=== PATIENT | female | born 1965 | race Caucasian/White ===

== ENCOUNTER 2023-04-15 09:59 | Outpatient (RCR) | payer SELFPAY ==
--- NOTE | 2023-04-15 10:59 | HP.PTEVAL_ITS ---
Patient's Visit Information ARIE NAIR is a 57 year old F referred to Physical Therapy by ARMANDO PULIDO with a diagnosis of laminectomy of L5/S1. DOS: 02/20/23. Date of Evaluation: 04/15/23 Physical Therapist: Carter Hartman DPT - Visit Plan Frequency: 1x/Week Duration: 6 Weeks Plan: Start with HS stretching, neutral spine DLS exercises. Progress as tolerated. Pt. to be seen weekly with progression of HEP as we progress. - Subjective Pt. is here today for her initial evaluation with diagnosis of spinal stenosis with neurogenic claudication, radiculopathy, laminectomy of L5/S1. DOS: 02/20/23. Pt. does have some tingling in her R LE down to her toes. this is better than it was, but is still present. No LE weakness noted. Pt. is hopeful to get back to all of her household work and working as a network cable installer. 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 Pt. is currently working on progressive walking program, but reports having some back fatigue with medium distances. Overall she is doing well, but would like to work on increasing her strength. No changes in B/B, no saddle region pain. - Pain Lumbar spine Pain Intensity (Out of 10): 4 Pain Intensity Range: 6 - Objective POSTURE: Pt. has decent posture in stance. Slight increased lumbar lordosis in stance. PALPATION: pt. has mild tenderness along lumbar spine, but minimal. NEURO: normal sensation in BLEs. Pt. has normal DTR of BLEs. Pt. is able to rise on heels and toes without issues. ROM: LUMBAR SPINE: flexion nil loss, SB min loss R none L, rotation min/nil loss bilat, ext mod loss. Pt. has tightness in B HS, R worse than L. MMT: RLE: ankle 5-/5 throughout; knee: ext 5/5, flexion 5- /5; hip: flexion 4/5, abd 4/5, ext 4/5. LLE: ankle 5/5 throughout; knee: ext 5/5, flexion 5/5; hip: flexion 4/5, abd 4/5, ext 4/5. Core strength- poor. GAIT: Pt. has decreased B arm swing, decreased trunk rotation with gait. No weakness noted. Guarded posture with gait. - Balance/Special Test Scores Oswestry Low Back Score: 15 - Goals Goal 1:: LTG: Pt. to be I with HEP. Goal Time Frame: 4-6 Weeks Goal 2:: LTG: Pt. to complete all daily activities in home without limitations. Goal Time Frame: 4-6 Weeks Goal 3:: LTG: Pt. to get back to work driving without limitations from her lumbar spine. Goal Time Frame: 6-8 Weeks Goal 4:: LTG: Pt. to have increased BLE and core strength to 5/5 throughout. Goal Time Frame: 6-8 Weeks Goal 5:: LTG: Pt. to complete all walking progressions without reports of pain or weakness in lumbar spine. Goal Time Frame: 2-4 Weeks - Rehabilitation Potential Physical Therapy Diagnosis: Pt. has signs and symptoms consistent with diagnosis of spinal stenosis with neurogenic claudication, radiculopathy, laminectomy of L5/S1. DOS: 02/20/23. Pt. has subsequent hypomobility, weakness and difficulty with walking. She would benefit from PT to work on progressive strengthening and walking progression. Rehabilitation Potential: Excellent - Anticipated Interventions Patient/Client Instruction: Educate patient on: Condition, Plan of Care, Risk Factors, Benefits of Fitness Program For the Purpose of:: To facilitate caregiver knowledge, To improve self management, To prevent re-injury, To improve ability to perform tasks related to life management, To improve tolerance to ADL's Therapeutic Exercise to Include: Strength training, Power training, Endurance training, Postural training, Flexibilty training, Gait and locomotor training, Dynamic Lumbar Stabilization For the Purpose of:: To decrease pain, To increase ROM, To improve nutrient delivery to tissue, To increase oxygenation perfusion, To improve muscle performance and motor function, To decrease soft tissue restriction Thank you for the opportunity to evaluate your patient. For Medicare and Medicare HMO plans, please review the plan of care and approve it. It will need to be FAXED BACK to us at [phone] for Medicare purposes. For Medicare only, by signing this I certify the plan of care. Please let me know if there are questions or concerns regarding this plan of care. Physician Signature: Date:
== END 2023-04-15 19:00 | disposition home or self-care (01) ==
LOC: PT 09:59
PROVIDERS: PCP Nurse Practitioner Primary Care
DX: M43.16 Spondylolisthesis, lumbar region (principal); M48.062 Spinal stenosis, lumbar region with neurogenic claudication; M54.16 Radiculopathy, lumbar region; Z47.89 Encounter for other orthopedic aftercare
CPT/HCPCS: 97110; 97161

== ENCOUNTER 2023-07-24 12:00 | Outpatient (RCR) | payer BC, SELFPAY ==
--- NOTE | 2023-07-24 12:29 | HP.PTDCSUM ---
Discharge Summary D/C summary: It has been my pleasure to treat ARIE NAIR referred by JOYCE RENEE, with the diagnosis of LBP with R LE radiculopathy for a total of 6 visit(s). Discharge Date: Please see the following information for a summary of their discharge status. Subjective Subjective: I already have my surgery scheduled. Pain has remained the same with no change in LBP or R LE radiculopathy Pain LBP: Pain Intensity (Out of 10): 6 R LE: Pain Intensity (Out of 10): 6 Overall Improvement % Improvement: 0 Objective Objective/Function: There is no change in pain level at this time. There is no change in R LE radiculopathy at this time Pt is I with HEP, but is unable to perform the ex's secondary to pain Pt has made no improvements at this time Goals Goal 1:: Decrease LBP x 50% to aid with ambulation Goal Progress: Not Progressing Goal 2:: Decrease the frequency and intensity of R LE radiculopathy x 50% to aid with standing tolerance Goal Progress: Not Progressing Goal 3:: I with HEP Goal Progress: Goal Met Plan Plan: Discharge D/C Information d/c sentence: If there are questions or concerns regarding this patient's physical therapy, please feel free to call me at [phone]. Thank you for the referral of this patient. Sincerely, Blaine Givens, PT, ATC Balance/Gait/Functional tests Balance/Special Test Scores Oswestry Low Back Score: 11 Improvement % Improvement: 0
== END 2023-07-24 19:00 | disposition home or self-care (01) ==
LOC: PT 12:00
PROVIDERS: PCP Nurse Practitioner Primary Care
DX: M48.07 Spinal stenosis, lumbosacral region (principal); M43.16 Spondylolisthesis, lumbar region; M48.062 Spinal stenosis, lumbar region with neurogenic claudication
CPT/HCPCS: 97110; 97161; 97164

== ENCOUNTER 2024-01-13 09:30 | Outpatient (RCR) | payer BC, SELFPAY ==
--- NOTE | 2023-10-01 11:47 | HP.PTEVAL ---
Patient's Visit Information Visit Information Visit Information: ARIE NAIR is a 58 year old F referred to Physical Therapy by JOYCE RENEE with a diagnosis of L4-S1 ALIF/PSF ON 08/27/23 FOR L/S DEG SPONDYLOLISTHESIS W/RADIC. Date of Evaluation: 10/01/23 Physical Therapist: Yohana Schwartz, PT, Cert MDT Visit Plan Frequency: 2x /Week Duration: 4-6 Weeks Plan: *CHECK AUTH* Consider STM (By PT Only), Posture Correction/Strengthening, Instruction in Appropriate Body Mechanics and Activity Modifications. DLS with NEUTRAL SPINE ONLY (per physician order). CARMELINA LE ROM, Stretching and Strengthening as needed. HEP Instruction. 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 Disability: NO Present symptoms: INTERMITTENT CARMELINA LOW BACK PAIN R > LEFT. INTERMITTENT R THIGH AND LEG PAIN. CONSTANT R FOOT (ARCH) PAIN. INTERMITTENT R FOOT/TOE NUMBNESS. INTERMITTENT L GROIN, THIGH AND FOOT NUMBNESS. Pain Scale: WORST 5/10, LEAST 3/10 Currently: 5/10 Is it getting better, worse or staying the same: STAYING THE SAME NOW BUT OVER ALL SIGNIFICANTLY BETTER R LE SX'S SINCE SX. Commenced as a result of: NO APPARENT REASON Worse: BEING ON FEET TOO LONG, BEING ACTIVE, NOT TAKING IT EASY, Better: LYING FLAT ON BACK, WALKING Disturbed sleep: YES Previous history/Previous treatment: THIS IS PATIENTS 3RD BACK SURGERY. PREVIOUS SURGERIES INCLUDE L L4-5 AND L5-S1 LAMINOFORAMIONTOMY DECOMPRESSION BY DR. BESSIE DANG ON 10/18/21 AND L4-5 LAMINOFORAMINOTOMY DECOMPRESSION ON 02/20/23 COMPLICARTED BY PERSISTENT LUMBAR RADICULOPATHY/POST LAMINECTOMY SYNDROME. ALSO TRIED EDWIN'S, PNP INJECTIONS, MASSAGE, CHIROPRACTIC AND PHYSICAL THERAPY. Coughing/sneezing/straining: NEGATIVE Gait: INDEP WITHOUT AD. DENIES LIMPING. USING TREADMILL ABOUT 1/2 TO 3/4 MILE A DAY. PLUS WALKING AROUND HOUSE 5-10 MIN 3-4 TIMES A DAY. Bowel or Bladder Dysfunction: NO Accidents: NO Unexplained weight loss: NO Imagin09/23/23 LUMBAR X-RAY WITHOUT EVIDENCE OF HARDWARE FAILURE OR LOOSENING. INTERVAL YAZIDISM OF DISC AND FORAMINAL HEIGHT COMPARED TO PREOPERATIVE FILMS. PMH/Recent major surgery: HIGH CHOLESTEROL. PHYSICIAN RESTRICTIONS: OK TO START WEANING OUT OF BRACE THIS WEEK (5 WKS PO) LETTING PAIN BEING HER GUIDE. ALSO AT 5 WKS ALLOWED TO BEND, LIFT AND TWIST LETTING PAIN BE HER GUIDE. PATIENT REPORTS SHE CALLED BACK TO HER SURGEON AFTER HER 4 WK FOLLOW UP TO CLARIFY THIS. Objective Objective: Sitting/Standing Posture: FAIR. REDUCED LORDOSIS. Other Observations: INDEP GAIT INTO PT WITHOUT ANY AD'S OR LOB. DECREASED CADANCE AND GUARDED GAIT. WEARING BACK BRACE. SEE TUG TIME BELOW. Sensory deficit: CARMELINA LE LIGHT TOUCH SENSATION GROSSLY INTACT. ROM deficit: CARMELINA HIP FLEXOR, HIP ROTATOR AND HS TIGHTNESS Motor deficit: CARMELINA LE'S GROSSLY 5/5 WITH MMT'ING EXCEPT HIPS 4/5. Reflexes: 2/3 CARMELINA LE'S. Lumbar mvmt loss: NT Core strength: POOR Palpation: ANTERIOR AND POSTERIOR INCISIONS ALL LOOK GOOD WITHOUT ANY SIGNS OF INFECTION. PATIENT DENIES TENDERNESS WITH LUMBAR AND HIP PALPATION BUT THERE IS MILD INCREASED CARMELINA THORACIC AND LUMBAR PARASPINAL INCREASED M. TONE. TREATMENT: NEUROMUSCULAR REEDUCATION - RETRAINING OF MVMT AND POSTURE FOR SITTING, LYING AND STANDING ACTIVITIES. INSTRUCTED IN WALKING PROGRAM AND SAFE WEANING FROM BRACE. Balance/Special Test Scores Oswestry Low Back Score: 17 TUG Test Time Seconds: 16.73 30 Second Chair Rise Test Seconds: 4 Goals Goal 1:: DECREASE C/O LOW BACK AND LE SX'S BY 50% TO EASE ADL'S. Goal Time Frame: 4-6 Weeks Goal 2:: IMPROVE BACK OSWESTRY SCORE BY 5 POINTS TO AID IN RETURN TO PLOF Goal Time Frame: 4-6 Weeks Goal 3:: PATIENT WILL COMPLETE 8 STANDS IN 30 SECS TO DEMONSTRATE IMPROVED FUNCTIONAL STRENGTH Goal Time Frame: 4-6 Weeks Goal 4:: PATIENT WILL COMPLETE TUG IN < 10 SECS TO DEMONSTRATE IMPROVED GAIT STABILITY Goal Time Frame: 4-6 Weeks Goal 5:: PATIENT WILL BE INDEP WITH A HEP FOR CONTINUED IMPROVEMENT ONCE FORMAL PHYSICAL THERAPY CONCLUDES. Goal Time Frame: 4-6 Weeks Anticipated Interventions Patient/Client Instruction: Educate patient on: Condition, Plan of Care and Risk Factors For the Purpose of:: To improve self management Therapeutic Exercise to Include: Strength training, Body mechanics, Postural training, Flexibilty training, Neuromotor development and Dynamic Lumbar Stabilization For the Purpose of:: To decrease pain, To increase ROM, To improve muscle performance and motor function, To increase tolerance to activity/condition/position and To improve ability of physical actions for home/community/work/leisure Manual Therapy Techniques to Include: Soft tissue mobilization For the Purpose of:: To decrease pain and To improve nutrient delivery to tissue Thermo therapy (hot pack): Yes Ultrasound (thermal/non thermal): Yes For the Purpose of:: To decrease pain and To improve nutrient delivery to tissue Text: Thank you for the opportunity to evaluate your patient. For Medicare and Medicare HMO plans, please review the plan of care and approve it. It will need to be FAXED BACK to us at [phone] for Medicare purposes. For Medicare only, by signing this I certify the plan of care. Please let me know if there are questions or concerns regarding this plan of care. Physician Signature: Date:
--- NOTE | 2023-11-21 10:29 | HP.PTREVAL_ITS ---
Re-Evaluation Intro: JOYCE RENEE, It has been my pleasure to treat ARIE NAIR over the last 12 visits for L4- S1 ALIF/PSF ON 08/27/23 FOR L/S DEG SPONDYLOLISTHESIS W/RADIC. Please see the progress note below for an update on the physical therapy plan of care! Subjective Subjective: PATIENT REPORTS THERAPY HAS DEFINATELY HELPED. STATES SHE TOOK 2 25 MINUTE WALKS YESTERDAY WITH 15 MINUTES OF THEM BEING AT A BRISK PACE AND SHE IS HAPPY WITH THAT. STATES SHE WAS SORE AFTER LAST SESSION BUT FINE BY THE NEXT DAY. ALSO SORE AFTER DOING HER WALKS, ALL OF HER HOME EX'S AND HOUSEWORK BUT ABLE TO ALLEVIATE WITH ICE AND REST. STILL HAVING L THIGH AND R FOOT NUMBNESS AND TIGHTNESS BUT IMPROVED. SCHEDULED MASSAGE GOT CANCELLED DUE TO THERAPIST ILLNESS. Objective Objective/Function: PATIENT WAS SEEN TODAY FOR RE-ASSESSMENT OF PROGRESS TOWARD THE SET PT GOALS AND THE NEED FOR FURTHER PHYSICAL THERAPY VS READINESS FOR DISCHARGE. UPON EXAM TODAY: LUMBAR MVMT LOSS: FLEX - MIN TO MOD EXT - MOD R SG - MIN L SG - MOD PATIENT REPORTS CARMELINA BUTTOCK PAIN AT THE END OF THE AVAILABLE RANGE INTO FLEXION WITH TESTING BUT DENIES INCREASED PAIN WITH LUMBAR ROM TESTING ALL OTHER PLANES. INSTRUCTED PATIENT IN SUPINE SKTC AND LTR WITH GOOD TOLERANCE TODAY AND ADDED TO HEP TOLERATED. CARMELINA LE STRENGTH 5/5. SEE MUCH IMPROVED TUG TEST TIME AND STS TEST RESULTS BELOW. CORE STRENGTH - FAIR PATIENT IS INDEP WITH A HEP AND IS INDEP WITH A WALKING PROGRAM AND SELF PROGRESSION OF WALKING PROGRAM. Plan Plan Plan: PHYSICIAN RE-ASSESSMENT. HOLD CHART. Balance/Gait/Functional tests Balance/Special Test Scores Oswestry Low Back Score: 10 TUG Test Time Seconds: 8.55 Tug Test: <10 sec.=free mobile 30 Second Chair Rise Test Seconds: 9 Goals Goals Goal 1:: DECREASE C/O LOW BACK AND LE SX'S BY 50% TO EASE ADL'S. Goal Time Frame: 4-6 Weeks Goal Progress: Goal Met Goal 2:: IMPROVE BACK OSWESTRY SCORE BY 5 POINTS TO AID IN RETURN TO PLOF Goal Time Frame: 4-6 Weeks Goal Progress: Goal Met Goal 3:: PATIENT WILL COMPLETE 8 STANDS IN 30 SECS TO DEMONSTRATE IMPROVED FUNCTIONAL STRENGTH Goal Time Frame: 4-6 Weeks Goal Progress: Goal Met Goal 4:: PATIENT WILL COMPLETE TUG IN < 10 SECS TO DEMONSTRATE IMPROVED GAIT STABILITY Goal Time Frame: 4-6 Weeks Goal Progress: Goal Met Goal 5:: PATIENT WILL BE INDEP WITH A HEP FOR CONTINUED IMPROVEMENT ONCE FORMAL PHYSICAL THERAPY CONCLUDES. Goal Time Frame: 4-6 Weeks Goal Progress: Goal Met Anticipated Interventions Anticipated Interventions Patient/Client Instruction: Educate patient on: Condition, Plan of Care and Risk Factors For the Purpose of:: To improve self management Therapeutic Exercise to Include: Strength training, Body mechanics, Postural training, Flexibilty training, Neuromotor development and Dynamic Lumbar Stabilization For the Purpose of:: To decrease pain, To increase ROM, To improve muscle performance and motor function, To increase tolerance to activity/condition/position and To improve ability of physical actions for home/community/work/leisure Manual Therapy Techniques to Include: Soft tissue mobilization For the Purpose of:: To decrease pain and To improve nutrient delivery to tissue Thermo therapy (hot pack): Yes Ultrasound (thermal/non thermal): Yes For the Purpose of:: To decrease pain and To improve nutrient delivery to tissue Re-Evaluation Ending Re-evaluation ending: Please do not hesitate to contact me at [phone] by phone or if you have questions or concerns regarding this new plan of care! Sincerely, Yohana Schwartz, PT, Cert MDT
--- NOTE | 2023-12-12 11:05 | HP.PTREVAL ---
Re-Evaluation Intro: JOYCE RENEE, It has been my pleasure to treat ARIE NAIR over the last 13 visits for L4-S1 ALIF/PSF ON 08/27/23 FOR L/S DEG SPONDYLOLISTHESIS W/RADIC. Please see the progress note below for an update on the physical therapy plan of care! Subjective Subjective: PATIENT REPORTS SHE WAS GETTING BETTER UNTIL YESTERDAY IN TERMS OF HER ACTIVITY LEVEL. SHE STATES SHE FLEW HOME FROM [place] YESTERDAY AND HAD A REALLY HARD TIME WALKING IN THE [place]. THE PAIN STARTED BEFORE SHE EVEN GOT ON THE FLIGHT. PRIOR TO THAT FLARE UP YESTERDAY MORNING WAS UP TO DOING 3O MINUTE WALKS WHICH WAS AN IMPROVEMENT BECAUSE THAT INCLUDED 20 MINUTE BRISK WALK. STATES HER BACK FLARED UP FOR NO APPARENT REASON. SHE ALSO REPORTS WORSENING OF HER FOOT SYMPTOMS FOR THE LAST TWO WEEKS - TINGLING AND BURNING - THAT GETS WORSE WITH ACTIVITY AND BETTER WITH LYING FLAT. PATIENT REPORTS SHE WANTS TO RESUME THERAPY TO SEE IF SHE CAN GET BACK TO NORMAL ACTIVITY WITHOUT THIS PAIN. REPORTS PARTIAL COMPLIANCE WITH HEP BUT STATES SHE FORGOT SOME OF THE EX'S BUT HAS WRITTEN INSTRUCTIONS SHE CAN LOOK AT. Objective Objective/Function: THIS PATIENT PRESENTS TO PT WITH A NEW ORDER TO RESUME PT AND HAS FOLLOW UP SCHEDULED WITH HER SURGEON IN ONE YEAR. PATIENT WAS SEEN TODAY FOR RE-ASSESSMENT OF PROGRESS TOWARD THE SET PT GOALS AND THE NEED FOR FURTHER PHYSICAL THERAPY VS READINESS FOR DISCHARGE. OVER-ALL THERE ARE NO SIGNIFICANT CHANGES SIINCE LAST RE-CHECK AND PATIENT IS A GOOD CANDIDATE TO RESUME PT BASED ON PROGRESS MADE AND ROOM FOR FURTHER IMPROVEMENT. UPON EXAM TODAY: LUMBAR MVMT LOSS: FLEX - MIN EXT - MOD R SG - MOD L SG - MOD PATIENT REPORTS INCREASED PAIN IN HER TAILBONE AREA WITH LUMBAR ROM TESTING ALL PLANES AND CARMELINA CALF PAIN WITH LUMBAR FLEXION ROM TESTING BUT DOES NOT REMAIN WORSE A RESULT. CARMELINA LE STRENGTH 5/5. CORE STRENGTH - FAIR Plan Plan Plan: *CHECK AUTH AND RECORD IN CHART* NEUTRAL SPINE CORE STABILITY. BACK EDUCATION. POSTURE TRAINING. PROGRESS THER EX TOLERATED AND GEAR EX'S TOWARDS GYM OR HOME PER PATIENT PREFERENCE. Balance/Gait/Functional tests Balance/Special Test Scores Oswestry Low Back Score: 12 TUG Test Time Seconds: 8.82 Tug Test: <10 sec.=free mobile 30 Second Chair Rise Test Seconds: 8 Goals Goals Goal 1:: NEW GOAL: DECREASE C/O LOW BACK AND LE SX'S BY 65% TO EASE ADL'S. Goal Time Frame: 4-6 Weeks Goal Progress: Goal Met Goal 2:: NEW GOAL: IMPROVE BACK OSWESTRY SCORE BY 5 POINTS TO AID IN RETURN TO PLOF Goal Time Frame: 4-6 Weeks Goal Progress: Goal Met Goal 3:: PATIENT WILL COMPLETE 8 STANDS IN 30 SECS TO DEMONSTRATE IMPROVED FUNCTIONAL STRENGTH Goal Time Frame: 4-6 Weeks Goal Progress: Goal Met Goal 4:: PATIENT WILL COMPLETE TUG IN < 10 SECS TO DEMONSTRATE IMPROVED GAIT STABILITY Goal Time Frame: 4-6 Weeks Goal Progress: Goal Met Goal 5:: NEW GOAL: PATIENT WILL BE INDEP WITH A HEP AND/OR GYM EX PROGRAM FOR CONTINUED IMPROVEMENT ONCE FORMAL PHYSICAL THERAPY CONCLUDES. Goal Time Frame: 4-6 Weeks Goal Progress: Goal Met Goal 6:: NEW GOAL: PATIENT WILL HAVE GOOD CORE STRENGTH/STABILITY Goal Time Frame: 4-6 Weeks Anticipated Interventions Anticipated Interventions Patient/Client Instruction: Educate patient on: Condition, Plan of Care and Risk Factors For the Purpose of:: To improve self management Therapeutic Exercise to Include: Strength training, Body mechanics, Postural training, Flexibilty training, Neuromotor development and Dynamic Lumbar Stabilization For the Purpose of:: To decrease pain, To increase ROM, To improve muscle performance and motor function, To increase tolerance to activity/condition/position and To improve ability of physical actions for home/community/work/leisure Manual Therapy Techniques to Include: Soft tissue mobilization For the Purpose of:: To decrease pain and To improve nutrient delivery to tissue Thermo therapy (hot pack): Yes Ultrasound (thermal/non thermal): Yes For the Purpose of:: To decrease pain and To improve nutrient delivery to tissue Re-Evaluation Ending Re-evaluation ending: Please do not hesitate to contact me at [phone] by phone or if you have questions or concerns regarding this new plan of care! Sincerely, Yohana Schwartz, PT, Cert MDT
--- NOTE | 2024-01-15 13:37 | HP.PTDCSUM ---
Discharge Summary D/C summary: It has been my pleasure to treat ARIE NAIR referred by JOYCE RENEE, with the diagnosis of L4-S1 ALIF/PSF ON 08/27/23 FOR L/S DEG SPONDYLOLISTHESIS W/RADIC for a total of 16 visit(s). Discharge Date: 01/15/24 Please see the following information for a summary of their discharge status. Subjective Subjective: PATIENT STATES SHE FEELS SHE HAS BENEFITED VERY MUCH FROM PHYSICAL THERAPY AND FEELS SHE HAS LEARNED HOW TO CONTINUE TO WORK ON GETTING STRONGER. REPORTS ADDING STS EX WITHOUT INCREASED PAIN. PATIENT REPORTS HER R ARM IS STILL BOTHERING HER BUT ABLE TO DO HER ROWS AND PULLDOWNS WITH THE OTB WITHOUT ANY INCREASED PAIN. Pain LOW BACK: Pain Intensity (Out of 10): 2 R LE: Pain Intensity (Out of 10): 0 L LE: Pain Intensity (Out of 10): 1 Overall Improvement % Improvement: 60 Objective Objective/Function: PATIENT WAS SEEN TODAY FOR RE-ASSESSMENT OF PROGRESS TOWARD THE SET PT GOALS AND THE NEED FOR FURTHER PHYSICAL THERAPY VS READINESS FOR DISCHARGE. UPON EXAM TODAY: PATIENT IS INDEP WITH A HEP. WRITTEN HEP HAS BEEN PROVIDED AND BANDED LATERAL WALKS WITH OTB WERE ADDED TODAY WITH GOOD TOLERANCE. LUMBAR MVMT LOSS: FLEX - MIN EXT - MOD R SG - MOD L SG - MOD PATIENT DENIES INCREASED PAIN WITH LUMBAR ROM TESTING ALL PLANES TODAY. CARMELINA LE STRENGTH 5/5. CORE STRENGTH - GOOD. PATIENT HAS MADE GOOD PROGRESS WITH PT AND IS APPROPRIATE FOR DISCHARGE. SHE IS AGREEABLE. SHE WAS OBSERVED BENDING AND TWISTING IN THE TREATMENT ROOM AND NEEDED CUEING TO BRING IT TO HER AWARENESS AND RECOMMENDED USE OF BETTER BODY MECHANICS. 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 Goals Goal 1:: NEW GOAL: DECREASE C/O LOW BACK AND LE SX'S BY 65% TO EASE ADL'S. Goal Progress: Patient reports 60% Goal 2:: NEW GOAL: IMPROVE BACK OSWESTRY SCORE BY 5 POINTS TO AID IN RETURN TO PLOF Goal Progress: Goal Met Goal 3:: PATIENT WILL COMPLETE 8 STANDS IN 30 SECS TO DEMONSTRATE IMPROVED FUNCTIONAL STRENGTH Goal Progress: Goal Met Goal 4:: PATIENT WILL COMPLETE TUG IN < 10 SECS TO DEMONSTRATE IMPROVED GAIT STABILITY Goal Progress: Goal Met Goal 5:: NEW GOAL: PATIENT WILL BE INDEP WITH A HEP AND/OR GYM EX PROGRAM FOR CONTINUED IMPROVEMENT ONCE FORMAL PHYSICAL THERAPY CONCLUDES. Goal Progress: Goal Met Goal 6:: NEW GOAL: PATIENT WILL HAVE GOOD CORE STRENGTH/STABILITY Goal Progress: Goal Met Plan Plan: D/C TO INDEP EX. PATIENT AGREEABLE. D/C Information d/c sentence: If there are questions or concerns regarding this patient's physical therapy, please feel free to call me at [phone]. Thank you for the referral of this patient. Sincerely, Yohana Schwartz, PT, Cert MDT Balance/Gait/Functional tests Balance/Special Test Scores Oswestry Low Back Score: 9 TUG Test Time Seconds: 8.82 Tug Test: <10 sec.=free mobile 30 Second Chair Rise Test Seconds: 8 Improvement % Improvement: 60
== END 2024-01-13 19:00 | disposition home or self-care (01) ==
LOC: PT 09:30
PROVIDERS: PCP Nurse Practitioner Primary Care
DX: M48.062 Spinal stenosis, lumbar region with neurogenic claudication (principal); M43.16 Spondylolisthesis, lumbar region; Z47.89 Encounter for other orthopedic aftercare
CPT/HCPCS: 97110; 97112; 97162; 97164; 97530

== ENCOUNTER 2024-03-02 13:00 | Outpatient (RCR) | payer BC, SELFPAY ==
--- NOTE | 2024-02-10 08:58 | HP.PTEVAL ---
Patient's Visit Information Visit Information Visit Information: ARIE NAIR is a 58 year old F referred to Physical Therapy by JONES NAGEL with a diagnosis of Right Elbow. Date of Evaluation: 02/09/24 Physical Therapist: Nemo Franco DPT Visit Plan Frequency: 1x/Week Duration: 6 Weeks Plan: Lateral Epicondylitis- Manual, dry needling, US- decrease inflammation then progress to strength/stabilization Subjective Subjective: Patient reports that she saw the spine doctor due to elbow pain- he did an MRI saw a bone spur on the anterior C4-C5 and then sent her to see the elbow specialist. The elbow specialist did a cortisone injection and put you in a brace on the right side. She has had soreness in the elbow for 6 weeks after clippers. It has not cleared up at all. The more she uses it the more it aggravates it. The pain is located on the outside of the elbow. She has weakness in the whole right arm- it radiates into the neck as well. She has a lot of popping and clicking in the neck area. She has had x-rays on the elbow that showed calcium deposits. She does not feel the elbow its any better. Right hand dominate. The pain is the whole arm at this point. She describes the pain as dull and achy. Worst: Worst: 8/10 Agg: using it- like when she is more active- weighted objects. Eases: rest- sitting. Best: 2/10. No N/T in the fingers. She has had some increase in BARAJAS but none this week. No blurred vision or dizziness. Sleep: she is wearing a wrist splint at night. Occasionally- she gets numbness if she sleeps on her side. The numbness is more in the top of the arm when she has it and if she moves off her side it goes away. She has a lot of deterioration in her spine. She had a spinal fusion in August- she is still healing from that. She had carpal tunnel surgery 30 years ago bilateral PMHx: none Meds: hormone replacement, hydrochlorothiazide. Objective Objective: Posture: forward head, rounded shoulders- pt can correct with verbal cues but is unable to maintain Palpation: tender along common extensor tendon and down into the forearm ROM: Cervical: WFL in all planes but reports tightness, Shoulder: WFL but reports tightness at end range flexion and abduction, Elbow: WFL no pain, Wrist: WNL discomfort end range flexion and extn Strength: Scap: fair, Shoulder: 4+/5 throughout no pain, Elbow: 4/5 no pain, Wrist: 4/5 discomfort, Electrolysis Needle Operator: 50 bilateral Sensation: WNL to gross touch throughout upper extremity Special Test: Arm straight out: stretching wrist each direction: stretching but no pains Nothing throughout evaluation increased s/s Special Tests R Elbow Valgus Stress Test - MCL Instability: Negative R Elbow Varus Stress Stest - MCL Instability: Negative Balance/Special Test Scores Quick DASH Score: 50.0000 Goals Goal 1:: Patient will report participation in home exercise program activities a minimum of 5 days per week, as adjunct to skilled physical therapy intervention in preparation for independent home management upon discharge. Goal Time Frame: 4-6 Weeks Goal 2:: Patient will report no pain in her elbow for 1 week with ADL's. Goal Time Frame: 4-6 Weeks Rehabilitation Potential Physical Therapy Diagnosis: Patient presents with decreased strength/stabilization, clutch mechanic and muscular endurance leading to increased pain with ADL's. Rehabilitation Potential: Good Anticipated Interventions Patient/Client Instruction: Educate patient on: Benefits of Fitness Program For the Purpose of:: To improve ability to perform ADL's Therapeutic Exercise to Include: Strength training, Endurance training, Balance training, Coordination, Agility training, Body mechanics, Postural training, Flexibilty training, Gait and locomotor training, Neuromotor development, Passive ROM, Active ROM, Dynamic Lumbar Stabilization and Scapular Strength/Stabilization For the Purpose of:: To improve ability to perform ADL's Manual Therapy Techniques to Include: Functional dry needling and Soft tissue mobilization For the Purpose of:: To improve nutrient delivery to tissue TENS: Yes Cryotherapy (ice pack, ice massage): Yes Thermo therapy (hot pack): Yes Ultrasound (thermal/non thermal): Yes Text: Thank you for the opportunity to evaluate your patient. For Medicare and Medicare HMO plans, please review the plan of care and approve it. It will need to be FAXED BACK to us at [phone] for Medicare purposes. For Medicare only, by signing this I certify the plan of care. Please let me know if there are questions or concerns regarding this plan of care. Physician Signature: Date:
--- NOTE | 2024-04-06 11:27 | HP.PT.NRP ---
Patient Information Patient Information: ARIE NAIR was seen in my office for initial evaluation on 02/09/24. The following Plan of Care was established for this patient: POC Established Initial Frequency: 1x/Week Initial Duration: 6 Weeks Anticipated Interventions Patient/Client Instruction: Educate patient on: Benefits of Fitness Program For the Purpose of:: To improve ability to perform ADL's Therapeutic Exercise to Include: Strength training, Endurance training, Balance training, Coordination, Agility training, Body mechanics, Postural training, Flexibilty training, Gait and locomotor training, Neuromotor development, Passive ROM, Active ROM, Dynamic Lumbar Stabilization and Scapular Strength/Stabilization For the Purpose of:: To improve ability to perform ADL's Manual Therapy Techniques to Include: Functional dry needling and Soft tissue mobilization For the Purpose of:: To improve nutrient delivery to tissue TENS: Yes Cryotherapy (ice pack, ice massage): Yes Thermo therapy (hot pack): Yes Ultrasound (thermal/non thermal): Yes Last Seen Last Seen: This patient was last seen in our office . Pertinent comments regarding their Physical therapy will appear below: Patient to follow up with MD and appropriate to be d/c at this time At this point I will be discontinuing this patient from physical therapy. I would be happy to see this patient again in the future if found appropriate by the physician. Thank you! Nemo Franco, DPT Balance/Gait/Functional tests Balance/Special Test Scores Quick DASH Score: 50.0000
== END 2024-03-02 19:00 | disposition home or self-care (01) ==
LOC: PT 13:00
PROVIDERS: PCP Nurse Practitioner Primary Care
DX: M50.30 Other cervical disc degeneration, unspecified cervical region (principal); M47.892 Other spondylosis, cervical region
CPT/HCPCS: 97110; 97140; 97162

== ENCOUNTER 2024-05-18 15:00 | Outpatient (RCR) | payer BC, SELFPAY ==
--- NOTE | 2024-04-19 12:59 | HP.PTEVAL_ITS ---
Patient's Visit Information Visit Information Visit Information: ARIE NAIR is a 58 year old F referred to Physical Therapy by JONES TURNER with a diagnosis of 04/01/24 Right elbow common extensor tendon repair. Date of Evaluation: 04/19/24 Physical Therapist: Nemo Franco DPT Visit Plan Frequency: 2x /Week Duration: 6 Weeks Plan: 04/01/[address] Turner for right elbow common extensor tendon Repair- FOLLOW PROTOCOL Phase I: Week 2-6: Brace: at all times when not performing ex- ROM: PROM progress to AAROM as pt tolerates- Ex: scap strength (prox/postural focused) NO elbow or wrist resistance exercises- Modalities : per therapist, heat (before) ice (after) Phase II: Week 6-8: Brace: d/c at week 6 ROM: progress to full AROM Ex: graining machine operator strength, subax isometric wrist extn, Mod: per therapist, US, gentle massage along and against fiber orientation Phase III: Week 8-12: ROM: elbow ROM as tolerated, Ex: cont with phase II, add active wrist flexion/extn with progressive resistance, MOd: same as phase II Phase IV: Week 12-16: ROM: elbow ROM as tolerated, Ex: advanced strength, sports specific, return to full activities as tolerated, Mod as needed, consider return to sport including contact at 4 months if approved. HEP Given IE: postural correction, PROM elbow flexion/extn and gravity elim wrist flexion/extension- all educated to be GENTLE Subjective Subjective: Patient reports 04/01/[address] Turner for right elbow common extensor tendon Repair- she has been in the splint for 2 weeks that came off on Friday and she is now in a soft splint. She is not allowed to pickling operator more than a cup of coffee and wear the splint at all times. She reports that she is feeling better. The pain is located in the elbow- no pain that radiates. Worst: 10 Agg: moving it around Eases: moving it around. Best: 11/26. She reports always having a dull achy. She reports no sharp shooting pains. No numbness and tingling. Right hand dominate. Sleep: does wake her up if she is on her left side- but its not terrible- normally a back and right side sleeper. She does feel that its better than it was prior to surgery. The MRI showed that it was 75% torn. Goals: gardening and getting back to all off her normal function. Work: self employed taxi drivers. Still recovering from a fusion back surgery in August. PMHx/Meds: see list in chart. Objective Objective: Posture: forward head, rounded shoulders- increased guarding of the right UE- does have brace on right wrist Palpation: tender along extensor tendon at the elbow ROM: Cervical: WFL, Shoulder: WNL, Elbow: 0-145 with mild discomfort end range, Wrist: elbow bent: flexion: 35 degrees, extn: 60 degrees, rad dev: 15 degrees, ulnar dev: 50 degrees elbow extn: flexion 45 degrees extn: 50 degrees all with slight discomfort no pain Strength: not tested at elbow or wrist. Scap: fair Shoulder: 4/5 throughout Balance/Special Test Scores Quick DASH Score: 36.3625 Goals Goal 1:: Patient will be I with HEP and progression Goal Time Frame: 4-6 Weeks Goal 2:: Patient will maintain proper posture t/o tx session to demo increased scap s/s Goal Time Frame: 4-6 Weeks Goal 3:: Patient will demo full AROM of the right UE as allowed per protocol Goal Time Frame: 8-12 Weeks Goal 4:: Patient will demo equal graining machine operator strength as allowed by protocol Goal Time Frame: 8-12 Weeks Goal 5:: Patient will report 80% improvement Goal Time Frame: 8-12 Weeks Rehabilitation Potential Physical Therapy Diagnosis: Patient presents s/p right elbow surgery- she has decreased ROM, UE and scap s/s, muscular endurance leading to poor posture and decreased participation in ADL's. Anticipated Interventions Patient/Client Instruction: Educate patient on: Benefits of Fitness Program Therapeutic Exercise to Include: Strength training, Endurance training, Agility training, Body mechanics, Postural training, Neuromotor development, Passive ROM, Active ROM and Scapular Strength/Stabilization For the Purpose of:: To improve muscle performance and motor function Cryotherapy (ice pack, ice massage): Yes Thermo therapy (hot pack): Yes Ultrasound (thermal/non thermal): Yes Text: Thank you for the opportunity to evaluate your patient. For Medicare and Medicare HMO plans, please review the plan of care and approve it. It will need to be FAXED BACK to us at [phone] for Medicare purposes. For Medicare only, by signing this I certify the plan of care. Please let me know if there are questions or concerns regarding this plan of care. Physician Signature: Date:
--- NOTE | 2024-06-08 08:40 | HP.PT.NRP ---
Patient Information Patient Information: ARIE NAIR was seen in my office for initial evaluation on 04/19/24. The following Plan of Care was established for this patient: POC Established Initial Frequency: 2x /Week Initial Duration: 6 Weeks Anticipated Interventions Patient/Client Instruction: Educate patient on: Benefits of Fitness Program Therapeutic Exercise to Include: Strength training, Endurance training, Agility training, Body mechanics, Postural training, Neuromotor development, Passive ROM, Active ROM and Scapular Strength/Stabilization For the Purpose of:: To improve muscle performance and motor function Cryotherapy (ice pack, ice massage): Yes Thermo therapy (hot pack): Yes Ultrasound (thermal/non thermal): Yes Last Seen Last Seen: This patient was last seen in our office . Pertinent comments regarding their Physical therapy will appear below: Patient reports that she is doing great and just has mild soreness- she does not feel that she needs PT at this time and feels appropriate for d/c. At this point I will be discontinuing this patient from physical therapy. I would be happy to see this patient again in the future if found appropriate by the physician. Thank you! Nemo Franco, RODGERT Balance/Gait/Functional tests Balance/Special Test Scores Quick DASH Score: 22.7274
== END 2024-05-18 19:00 | disposition home or self-care (01) ==
LOC: PT 15:00
PROVIDERS: PCP Nurse Practitioner Primary Care
DX: M66.221 Spontaneous rupture of extensor tendons, right upper arm (principal)
CPT/HCPCS: 97110; 97140; 97162; 97530

== ENCOUNTER 2024-10-08 13:30 | Outpatient (RCR) | payer BC, SELFPAY ==
--- NOTE | 2024-09-15 13:22 | HP.PTEVAL_ITS ---
Patient's Visit Information Visit Information Visit Information: ARIE NAIR is a 59 year old F referred to Physical Therapy by JOYCE RENEE with a diagnosis of CERVICAL SPONDYLOSIS AND DDD. Date of Evaluation: 09/15/24 Physical Therapist: Yohana Schwartz PT, Cert MDT Visit Plan Frequency: 2x /Week Duration: 4-6 Weeks Plan: POSTURE CORRECTION/STRETCHING AND STRENGTHENING. NECK ROM AND STRETCHING. CARMELINA SHOULDER STRETCHING AND STRENGTHENING. HEP INSTRUCTION. 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 A LSO OWNS PROPERTY, DOES CLEANING AND RAISES AND SELLS PUPPIEES. WORKING TOTAL ABOUT 30 TO 35 HRS A WEEK PER PATIENT REPORT. Disability: NO Present symptoms: PATIENT C/O L SHLD NUMBNESS DOWN ARM INTO THUMB AND INDEX FINGER. BOTH HANDS ARE STIFF AND SORE IN THE MORNINGS. EXTREME TIGHTNESS IN THE SHLD AREAS BOTH SIDES. ACHINESS BOTH ARMS AND SHOULDERS. HEADACHES. NECK PAIN, POPPING AND CRACKING. FEELINGS OF CHOKING. NO HEADACHE TODAY. Present since: 6-8 YEARS AGO Pain Scale: Worst - 8/10 Least - 4/10 Currently: 6/10 Commenced as a result of: A LOT OF DRIVING. Worse: DRIVING, LIFTING, GARDENING, TURNING HEAD, MORNINGS Better: ICING, HEATING, MASSAGE, RESTING LYING FLAT ON BACK, DOES CHIROPRACTIC BUT CAN'T TELL THAT IT HELPS. ADVIL. ALEVE ARTHRITIS. Disturbed sleep: YES Previous history/Previous treatment: NO NECK SURGERY. NO NECK INJECTIONS. PATIENT REPORTS SHE HAS SEEN A NECK SURGEON ABOUT 3 TIMES AND NECK SURGERY HAS BEEN RECOMMENDED. PHYSICAL THERPAY WAS ORDERED IN THE spring BUT SHE WAS UNABLE TO DO IT BECAUSE SHE HAD A TEAR IN THE RIGHT ELBOW AND SHE HAD TO HAVE SURGERY AND THERAPY FOR THAT FIRST. SHE STATES SHE HAS TO DO THERAPY FIRST FOR HER NECK OR INSURANCE WON'T APPROVE SURGERY FOR HER NECK. SHE REPORTS SHE HAS HAD A LOT OF CHIROPRACTIC ON HER NECK INCLUDING TRACTION WITHOUT BENEFIT AND THE TRACTION ACTUALLY MAKES HER ARM SX'S WORSE FOR AT LEAST A DAY. Dizziness: NOT CURRENTLY BUT DID ABOUT 2 MONTHS AGO ESPECIALLY AFTER WALKING. Tinnitus: NO Nausea: NO Shortness of Breath: NO Difficulty Swollowing: occasionally Gait: INDEP. STATES SHE IS WALKING OK AND NOT USING ANY AD'S. STATES SHE DOES HAVE SOMETHING GOING ON WITH HER FOOT. THEY DID A STEROID INJECTION WHICH SHE REPORTS DECREASED THE PAIN AND SHE STATES SHE HAS FOLLOW UP TOMORROW. Accidents: SMALL WHIPLASH 1989' Unexplained weight loss: NO Imaging: MRI NECK JANUARY 2024 - SHOWING OSTEOPHYTE THAT CAN BE TAKEN OFF WITH SURGERY PER PATIENT REPORT. PMH/Recent major surgery: PATIENT DENIES ANY NEW MEDICAL CONDITIONS. 2 LUMBAR LAMINECTOMIES AND ONE BACK FUSION SINCE 2020 WITH LAST SURGERY BEING AUG 27 2023. R ELBOW SX APR 01 2024. Objective Objective: Sitting Posture/Standing Posture: FORWARD HEAD AND ROUNDED SHOULDERS. NO TORTICOLLIS. Active Correction of posture: WORSE. INCREAESES C/O NECK, UPPER BACK AND B SHLD PAIN. Other Observations: INDEP GAIT AND TRANSFERS WITHOUT AD. Sensory deficit: CARMELINA UE LIGHT TOUCH SENSATION GROSSLY INTACT AND SYMMETRICAL ROM deficit: CARMELINA SHLD END-RANGE TIGHTNESS AND PAIN ALL PLANES. POSTURAL TIGHTNESS AND PAIN. Motor deficit: CARMELINA UE'S GROSSLY 5/5 WITH MMT'ING. R HAND DOMINANT WITH A R AUTOMATION MANAGER STRENGTH OF 35 LBS, L 34 LBS. Cervical Mvmt Loss: Flex: MIN - INCREASES NECK - NW Pro: NIL - INCREASES SHLD'S - NW Ext: MOD - INCREASES NECK - NW Ret: BLAKE - INCREASES NECK AND UPPER BACK - NW RSB: MOD - P R SHLD BLADE PAIN - NW LSB: MOD - INCREASES L NECK PAIN - NW R Rot: MIN - INCREASES R NECK - NW L Rot: MIN - INCREASES R NECK - NW Postural strength: FAIR Palpation: INCREASED MUSCLE TONE AND TIGHTNESS OF CARMELINA UPPER AND MIDDLE TRAP REGIONS. OTHER: PATIENT REQUESTING NOT TO HAVE TRACTION DUE TO INCREASED UE SX'S WHEN DONE AT CHIROPACTORS MULTIPLE TIMES. Balance/Special Test Scores Oswestry Neck Score: 16 Goals Goal 1:: DECREASE C/O HEAD,NECK AND CARMELINA UE SX'S BY AT LEAST 25% TO EASE ADL'S. Goal Time Frame: 4-6 Weeks Goal 2:: INCREASE PAINFREE NECK ROM BY AT LEAST 25% TO EASE ADL'S. Goal Time Frame: 4-6 Weeks Goal 3:: PATIENT WILL SCORE AT LEAST 5 POINTS BETTER ON THE NECK OSWESTRY QUESTIONNAIRE Goal Time Frame: 4-6 Weeks Goal 4:: INDEP HEP Goal Time Frame: 4-6 Weeks Rehabilitation Potential Physical Therapy Diagnosis: NECK, CARMELINA SHLD AND POSTURAL STIFFNESS AND WEAKNESS. Rehabilitation Potential: Fair Anticipated Interventions Patient/Client Instruction: Educate patient on: Condition, Plan of Care and Risk Factors For the Purpose of:: To improve self management Therapeutic Exercise to Include: Strength training, Body mechanics, Postural training, Flexibilty training, Neuromotor development and Scapular Strength/Stabilization For the Purpose of:: To decrease pain, To improve muscle performance and motor function, To increase tolerance to activity/condition/position, To improve ability of physical actions for home/community/work/leisure, To decrease soft tissue restriction, To increase flexibility/ROM and To improve self management Text: Thank you for the opportunity to evaluate your patient. For Medicare and Medicare HMO plans, please review the plan of care and approve it. It will need to be FAXED BACK to us at [phone] for Medicare purposes. For Medicare only, by signing this I certify the plan of care. Please let me know if there are questions or concerns regarding this plan of care. Physician Signature: Date:
--- NOTE | 2024-10-08 14:06 | HP.PTDCSUM_ITS ---
Discharge Summary D/C summary: It has been my pleasure to treat AIRE NAIR referred by JOYCE RENEE, with the diagnosis of CERVICAL SPONDYLOSIS AND DDD for a total of 6 visit(s). Discharge Date: 10/08/24 Please see the following information for a summary of their discharge status. Subjective Subjective: PATIENT REPORTS SOMETIMES THE STRETCHES FEEL GOOD BUT IT JUST DOESN'T LAST. HEAT AND ICE ARE THE MAIN HELPFUL THINGS AT THIS POINT PER PATIENT REPORT. SHE REPORTS IT DEPENDS ON HER ACTIVITY LEVEL HOW MUCH PAIN SHE HAS AND ON THE TIME OF DAY. SHE REPORTS LESS PAIN IN THE MORNING AND MORE PAIN THE DAY PROGRESSES. Pain neck: Pain Intensity (Out of 10): 5 Overall Improvement % Improvement: 0 Objective Objective/Function: PATIENT WAS SEEN TODAY FOR RE-ASSESSMENT OF PROGRESS TOWARD THE SET PT GOALS AND THE NEED FOR FURTHER PHYSICAL THERAPY VS READINESS FOR DISCHARGE. UPON EXAM TODAY THERE ARE NO SIGNIFICANT CHANGES OVER-ALL COMPARED TO INITIAL EVALUATION. SHE IS NO WORSE AND SOMETIMES REPORTS TEMPORARY PAIN- RELIEF WITH THE EX'S BUT HER ROM AND STRENGTH IS NOT IMPROVING. Goals Goal 1:: DECREASE C/O HEAD,NECK AND CARMELINA UE SX'S BY AT LEAST 25% TO EASE ADL'S. Goal Progress: Not Met Goal 2:: INCREASE PAINFREE NECK ROM BY AT LEAST 25% TO EASE ADL'S. Goal Progress: Not Met Goal 3:: PATIENT WILL SCORE AT LEAST 5 POINTS BETTER ON THE NECK OSWESTRY QUESTIONNAIRE Goal Progress: Not Met Goal 4:: INDEP HEP Goal Progress: Goal Met Plan Plan: D/C DUE TO LACK OF IMPROVEMENT. PATIENT AGREEABLE. D/C Information d/c sentence: If there are questions or concerns regarding this patient's physical therapy, please feel free to call me at [phone]. Thank you for the referral of this patient. Sincerely, Yohana Schwartz, PT, Cert MDT Balance/Gait/Functional tests Balance/Special Test Scores Oswestry Neck Score: 14 Improvement % Improvement: 0
== END 2024-10-08 14:56 | disposition home or self-care (01) ==
LOC: PT 13:30
PROVIDERS: PCP Nurse Practitioner Primary Care
DX: M50.30 Other cervical disc degeneration, unspecified cervical region (principal); M47.892 Other spondylosis, cervical region
CPT/HCPCS: 97110; 97162; 97530

== ENCOUNTER 2025-02-03 09:00 | Outpatient (RCR) | payer BC, SELFPAY ==
--- NOTE | 2024-12-24 08:27 | HP.PTEVAL_ITS ---
Patient's Visit Information Visit Information Visit Information: ARIE NAIR is a 59 year old F referred to Physical Therapy by JOYCE RENEE with a diagnosis of Cervical fusion, radiculopathy. Date of Evaluation: 01/07/25 Physical Therapist: Carter Hartman DPT Visit Plan Frequency: 1x/Week Duration: 6 Weeks Plan: 1) AROM of cervical spine 2) scapular and postural strengthening. Add in cervical isometrics. Subjective Subjective: Pt. is here today for her initial evaluation with diagnosis of cervical fusion. Pt. reports overall doing much better. She does not have much pain now. Pt. reports no radicular symptoms, no N/T and no myotomal weakness. Pt. has been doing some ROM exercises at home without much issues. Pt. is sleeping well. Pt. is back to most ADLs without issues. Pt. is overall pleased with progress. pt. has not done much lifting, but has been doing well so far. Pt. is not back to work yet, but is driving and has not had much issues. Pt. is hopeful to ease back into all activties and increase her strength. Objective Objective: POSTURE: Pt. has decent posture in stance. Very slight rounded shoulders and very slight FH posture. PALPATION: Pt. has some mild tenderness at B UT, but no pain at anterior cervical spine. NEURO: Pt. has normal sensation in BUEs, Pt. has normal DR of BUEs. ROM: CERVICAL SPINE: flexion min loss NE, ext min loss NE, rotation min loss bilat NE, SB min loss bilat NE. Pt. has full B shoulder ROM without increase in symptoms. MMT: RUE: shoulder 4+/5 throughout; elbow and hand 5/5 throughout. LUE: shoulder: 4+/5 throughout; elbow and hand 5/5 throughout. CERVICAL ISO: 5/5 throughout. Balance/Special Test Scores Oswestry Neck Score: 10 Goals Goal 1:: LTG: Pt. to be I with HEP. Goal Time Frame: 4-6 Weeks Goal 2:: STG: Pt. to sleep throughout the night without increase in symptoms. Goal Time Frame: 2-4 Weeks Goal 3:: LTG: Pt. to have increased scapulat and B shoulder strength to 5/5 throughout. Goal Time Frame: 4-6 Weeks Goal 4:: LTG: Pt. to have increased cervical ROM to full without increase in s ymptoms. Goal Time Frame: 4-6 Weeks Rehabilitation Potential Physical Therapy Diagnosis: Pt. has signs and symptoms of cervical fusion. Pt. has marked hypomobility and postural weakness. This impacts her ADLs and IADLs. She would benefit from PT to address the above limitations progressing back to all work and recreational activities. Rehabilitation Potential: Excellent Anticipated Interventions Patient/Client Instruction: Educate patient on: Condition, Plan of Care, Risk Factors and Benefits of Fitness Program For the Purpose of:: To foster healthy habits, To improve decision making, To facilitate caregiver knowledge, To improve self management, To prevent re-injury and To improve ability to perform tasks related to life management Therapeutic Exercise to Include: Strength training, Power training, Postural training, Flexibilty training, Passive ROM, Active ROM and Scapular Strength/Stabilization For the Purpose of:: To decrease pain, To increase ROM, To increase oxygenation perfusion, To improve muscle performance and motor function and To improve ability to perform ADL's Text: Thank you for the opportunity to evaluate your patient. For Medicare and Medicare HMO plans, please review the plan of care and approve it. It will need to be FAXED BACK to us at [phone] for Medicare purposes. For Medicare only, by signing this I certify the plan of care. Please let me know if there are questions or concerns regarding this plan of care. Physician Signature: Date:
== END 2025-02-03 19:00 | disposition home or self-care (01) ==
LOC: PT 09:00
PROVIDERS: PCP Nurse Practitioner Primary Care
DX: M43.22 Fusion of spine, cervical region (principal); M47.22 Other spondylosis with radiculopathy, cervical region
CPT/HCPCS: 97110; 97140; 97161

== ENCOUNTER → 2025-02-15 | Outpatient (CLI) | payer BC, SELFPAY ==
[2025-02-15 07:25] LABS: Absolute Lymphocyte Count 1.63 X10^3/uL (0.83-4.51); Absolute Neutrophil Count 4.7 X10^3/uL (2.0-7.7); Basophil# 0.05 X10^3/uL; Basophil% 0.7 % (0-1); Eosinophil# 0.22 X10^3/uL; Hematocrit 43.6 % (37-47); Hemoglobin 14.7 g/dL (12.0-15.0); Lymphocyte # 1.63 X10^3/ul (0.83-4.51); Lymphocyte % 22.4 % (19-41); Mean Corp Hgb Conc 33.7 g/dL (32-36); Mean Corpuscular Hgb 29.9 pg (27.0-32.0); Mean Corpuscular Volume 88.6 fL (81-99); Mean Platelet Vol. 10.2 fl (6.2-12.0); Monocyte# 0.62 X10^3/uL; Monocyte% 8.5 % (0-10); NRBC Flagged by Analyzer 0 % (0-5); Neutrophil # 4.73 X10^3/uL (2.7-7.7); Neutrophil % 64.9 % (47-70); Platelet Count 303 K/mm3 (150-450); RBC Distribution Width CV 13.3 % (11.6-14.6); RBC Distribution Width SD 43.4 fl (35.1-43.9); Red Blood Count 4.92 M/mm3 (4.2-5.4); White Blood Count 7.3 K/mm3 (4.4-11.0)
[2025-02-15 08:05] LABS: Hemoglobin A1c 5.5 % (<=5.6)
[2025-02-15 08:17] LABS: ALB/GLOB Ratio 1.5 RATIO (0.9-2.4); AST(SGOT) 25 U/L (<=31); Alanine Aminotransfer ALT/SGPT 18 U/L (<=34); Albumin, Serum 4.3 g/dL (3.5-5.0); Alkaline Phosphatase 90 U/L (35-104); Anion Gap 11 (5-15); BUN 11 mg/dL (4-19); BUN/Creat Ratio 17.5 RATIO (10-20); Calcium,Total 9.1 mg/dL (7.6-11.0); Carbon Dioxide 25.4 mmol/L (21.0-32.0); Chloride 103 mmol/L (98-108); Cholesterol 248 mg/dL (<=200); Creatinine, Serum 0.65 mg/dL (0.70-1.20); EST Glomerular Filtration Rate 102 (>60); Free T3 2.5 pg/mL (2.18-3.98); Globulin 2.8 g/dL (2.2-4.2); Glucose 96 mg/dL (70-99); High Density Lipoprotein 49 mg/dL; Low Density Lipoprotein Calc. 182 mg/dL; Potassium 3.6 mmol/L (3.3-5.1); Sodium Level 139 mmol/L (133-145); Total Bilirubin 0.47 mg/dL (0.00-1.30); Triglycerides 87 mg/dL; Very Low Density Lipoprotein 17 mg/dL (5-40); Vitamin B12 528 pg/mL (180-914); Vitamin D,25 Hydroxy 33.8 ng/mL (30-100)
[2025-02-16 05:07] LABS: CRP, High Sensitivity 0.85 mg/L (0.00-3.00)
== END | disposition home or self-care (01) ==
PROVIDERS: PCP Nurse Practitioner Primary Care
DX: Z00.00 Encounter for general adult medical examination without abnormal findings (principal); R53.83 Other fatigue; I10 Essential (primary) hypertension; E55.9 Vitamin D deficiency, unspecified; D51.9 Vitamin B12 deficiency anemia, unspecified; E75.5 Other lipid storage disorders
CPT/HCPCS: 36415; 80053; 80061; 82306; 82607; 83036; 84439; 84443; 84481; 85025; 86141

== ENCOUNTER → 2025-03-21 | Outpatient (CLI) | payer BC, SELFPAY | END | disposition home or self-care (01) | PROVIDERS: PCP Nurse Practitioner Primary Care | DX: Z00.00 Encounter for general adult medical examination without abnormal findings (principal); I10 Essential (primary) hypertension; E78.5 Hyperlipidemia, unspecified; E55.9 Vitamin D deficiency, unspecified; D51.9 Vitamin B12 deficiency anemia, unspecified ==